=== PATIENT | female | born 1970 | race Caucasian/White ===

== ENCOUNTER 2017-06-11 15:42 | Emergency (ER) | payer BC, OTHER ==
--- NOTE | 2017-06-11 15:49 | PDOC ---
History of Present Illness - General Chief Complaint: Migraine Headache Stated Complaint: MIGRAINE Time Seen by Provider: 06/11/17 15:45 - History of Present Illness Initial Comments: 06/11/17 15:59 The patient is a 46 year old female with a history of migraines who presents for evaluation of headache. The patient reports a 1 day history of headache with associated photophobia, phonophobia, nausea, and 1 episode of non-bilious, non-bloody vomiting that the patient describes as similar to her typical migraine headaches. She states that she took an exedrine for her migraine with minimal improvement in her symptoms prompting her presentation to the ED for evaluation. She otherwise denies fevers, chills, SOB, chest pain, abdominal pain, numbness, tingling, weakness, or changes with urination or bowel movements. Past History - Past Medical History Allergies/Adverse Reactions: Allergies Allergy/AdvReac Type Severity Reaction Status Date / Time No Known Allergies Allergy Verified 06/11/17 15:48 Home Medications: Ambulatory Orders Aspirin/Acetaminophen/Caffeine [Excedrin Migraine Caplet] 2 each PO ONCE - Suicide/Smoking/Psychosocial Hx Smoking Status: No Smoking History: Never smoked Number of Cigarettes Smoked Daily: 0 Review of Systems - Review of Systems Comments:: 06/11/17 16:01 Constitutional: No fevers, chills, fatigue, malaise HEENT: No Rhinorrhea, nasal congestion, visual changes Cardiovascular: No chest pain, syncope, palpitations, lightheadedness Respiratory: No Cough, SOB, Hemoptysis, Gastrointestinal: Nausea, vomiting. No Abdominal pain, Constipation, Diarrhea, Melena Genitourinary: No Dysuria, Frequency, Urgency, Hesitancy, Hematuria, Flank pain Musculoskeletal: No Myalgia, arthralgia Skin: No rashes, itching, bruising, pallor Neurologic: Headache, Photophobia, Phonophobia. No Dizziness, Numbness, Weakness, or Tingling Psychiatric: No Hallucinations. No SI or HI *Physical Exam - Physical Exam Comments: 06/11/17 16:02 General Appearance: Nourished. No Apparent Distress HEENT: EOMI, ANAIS. No Pharyngeal Erythema, Tonsillar Exudate, Tonsillar Erythema Neck: No Cervical Lymphadenopathy Respiratory/Chest: Lungs Clear, Normal Breath Sounds. No Crackles, Rales, Rhonchi, Wheezing Cardiovascular: Regular Rhythm, Regular Rate. No Murmur, Gallops, Rubs Gastrointestinal/Abdominal: Normal Bowel Sounds, Soft. No Guarding, Rebound, Tenderness Musculoskeletal: No CVA Tenderness Extremity: Normal Capillary Refill Integumentary: Normal Color, Dry, Warm Neurologic: licensed real estate broker II-XII NML intact, Fully Oriented, Alert, Normal Mood/Affect, Normal Response, Motor Strength 5/5. Normal Finger to Nose and Heel to [place] Medical Decision Making - Medical Decision Making 06/11/17 16:03 The patient is a 46 year old female with a history of migraines who presents for evaluation of headache. Given the patient's history of migraine headache with a presentation similar to her prior migraine headaches, it is likely her current symptoms are due to a migraine headache. The patient has no focal neurological deficits on exam and appears clinically well. We will obtain a UA , urine preg to evaluate further and treat the patient with iv fluids, reglan, iv tylenol and continue to monitor and reassess. 06/11/17 17:51 UA, Urine preg are unremarkable. The patient reports significant improvement in her symptoms. We are comfortable discharging the patient home at this time with neurology follow up. We discussed the results, plan, and return precautions with the patient who voiced understanding and is agreeable with the plan. *DC/Admit/Observation/Transfer Diagnosis at time of Disposition: Migraine Qualifiers: Migraine type: unspecified Status migrainosus presence: without status migrainosus Intractability: not intractable Qualified Code(s): G43.909 - Migraine, unspecified, not intractable, without status migrainosus - Discharge Dispostion Disposition: HOME Condition at time of disposition: Good Admit: No - Referrals Referrals: Janie Mathur MD [Primary Care Provider] - - Patient Instructions Printed Discharge Instructions: DI for Migraine Additional Instructions: Please return to the ER if you experience concerning or worsening symptoms including worsening headache, vomiting, numbness, tingling or weakness. Your symptoms were likely due to a migraine headache. It is important that you call to schedule a follow up appointment with your Neurologist within 2-3 days to discuss your ER visit and further management of your symptoms. - Post Discharge Activity
--- NOTE | 2017-06-11 15:52 | PDOC ---
Attending Attestation - Resident Resident Name: Joaquin Singletary - ED Attending Attestation I have performed the following: I have examined & evaluated the patient, The case was reviewed & discussed with the resident, I agree w/resident's findings & plan, Exceptions are as noted - HPI HPI: 06/11/17 17:09 46-year-old female with a history of migraines presents the emergency department complaining of migraine. Patient reports migraine started last night. She reports the pain is worse on the top of her head and also slightly on the right side of her forehead,. Headache began gradually and became worse until she took an Excedrin about 1 hour prior to arrival here in the emergency department. Patient reports that her migraine has improved after she took the Excedrin but is still at about a 5 out of 10. She reports this feels exactly like her previous migraines. Reports associated nausea and one episode of nonbloody nonbilious emesis, as well as phonophobia and photophobia. Patient states she had a workup with a neurologist about 5-6 years ago for her headaches. Denies any focal weakness or numbness. Denies chest pain, shortness of breath, abdominal pain, lower extremity edema. - Physicial Exam PE: 06/11/17 17:13 GENERAL: Awake, alert, and fully oriented, in no acute distress HEAD: No signs of trauma EYES: PERRLA, EOMI, sclera anicteric, conjunctiva clear ENT: Auricles normal inspection, hearing grossly normal, nares patent, oropharynx clear without exudates. Moist mucosa NECK: Normal ROM, supple, no lymphadenopathy, JVD, or masses. No meningismus LUNGS: Breath sounds equal, clear to auscultation bilaterally. No wheezes, and no crackles HEART: Regular rate and rhythm, normal S1 and S2, no murmurs, rubs or gallops ABDOMEN: Soft, nontender, normoactive bowel sounds. No guarding, no rebound. No masses EXTREMITIES: Normal range of motion, no edema. No clubbing or cyanosis. No cords, erythema, or tenderness NEUROLOGICAL: Normal speech, cranial nerves intact, negative pronator drift, 5/ 5 strength in all 4 extremities, normal sensation to light touch in all 4 extremities, normal cerebellar exam, normal gait, normal reflexes and tone SKIN: Warm, Dry, normal turgor, no rashes or lesions noted. - Medical Decision Making 06/11/17 17:13 46-year-old female with a history of migraines presents with a headache consistent with her migraines. Vitals and exam are unremarkable, neurologic exam is completely within normal limits.Plan: -UPT -IVF, tylenol, reglan -reassess
[2017-06-11 15:54] VITALS: BP 121/73; PULSE 66; TEMP 97.6; BMI 23.1
[2017-06-11] MEDS ORDERED: ACETAMINOPHEN 1000 MG/100 ML VIAL (NON FORMULARY) IVPB ONE (15:55)
[2017-06-11] MEDS ORDERED: SODIUM CHLORIDE 1,000 ML IV STA (15:55)
[2017-06-11] MEDS ORDERED: METOCLOPRAMIDE HCL INJECTION 10 MG/2 ML VIAL IVPUSH ONE (15:55)
[2017-06-11] MEDS ORDERED: ACETAMINOPHEN INJECTION 100 ML IVPB ONE (15:57)
[2017-06-11 16:16] LABS: PH,URINE 8.5 (4.5-8); URINE BILIRUBIN Negative (NEGATIVE); URINE GLUCOSE (UA) Negative (NEGATIVE); URINE KETONE Negative (NEGATIVE); URINE NITRITE Negative (NEGATIVE); URINE UROBILINOGEN 0.2 (0.2-1.0)
[2017-06-11 16:18] LABS: HCG,QUALITATIVE URINE NEGATIVE; URINE APPEARANCE HAZY; URINE BLOOD Trace-intact (NEGATIVE); URINE COLOR YELLOW; URINE LEUK ESTERASE TRACE (NEGATIVE); URINE PROTEIN 1+ (NEGATIVE)
[2017-06-11 16:39] LABS: URINE BACTERIA FEW /hpf (NEGATIVE); URINE MUCUS 1+
== END 2017-06-11 18:03 | disposition home or self-care (01) ==
LOC: FER 15:42
PROC: 3E033NZ Introduction of Analgesics, Hypnotics, Sedatives into Peripheral Vein, Percutaneous Approach (ICD-10-PCS; principal; 2017-06-11)
PROC: 3E033GC Introduction of Other Therapeutic Substance into Peripheral Vein, Percutaneous Approach (ICD-10-PCS; 2017-06-11)
PROC: 3E0337Z Introduction of Electrolytic and Water Balance Substance into Peripheral Vein, Percutaneous Approach (ICD-10-PCS; 2017-06-11)
DX: G43.909 Migraine, unspecified, not intractable, without status migrainosus (principal)
CPT/HCPCS: 81003; 81015; 84703; 99282-25; J0131; J7030